=== PATIENT | male | born 1995 | race Caucasian/White ===

== ENCOUNTER 2016-07-27 14:48 | Emergency (ER) | payer BC ==
[2016-07-27] MEDS ORDERED: NS 2,000 ML IV ONE (14:58)
[2016-07-27] MEDS ORDERED: HYDROmorphONE/DILAUDID 1 MG/ML SYR IVP ONE (14:58)
[2016-07-27] MEDS ORDERED: ONDANSETRON 4 MG/2 ML VIAL IVP ONE ×2 (14:58→16:06)
--- NOTE | 2016-07-27 14:58 | UCPHY ---
H & P Patient Type: New HPI/ROS: HPI CHIEF COMPLAINT: Abdominal pain, nausea, vomiting HISTORY OF PRESENT ILLNESS: This patient very pleasant 20-year-old male, denies any significant medical history does not have any surgical history does not take any daily medications he presents to the urgent care with nausea, vomiting, and diffuse crampy abdominal pain however focally more tender no right lower quadrant. States he has had chills and night sweats, no diarrhea, no hematemesis. States that initially was a milk shake that he drank last night and then it has turned yellow bile. describes the pain as 6/10 diffuse abdomen worse right lower quadrant. Past Medical History: No medical history Past Surgical History: no surgical history Social History: denies daily use drugs alcohol tobacco products, is [employer] student Family History: Noncontributory ROS REVIEW OF SYSTEMS: A comprehensive 10 point review of systems is otherwise negative aside from elements mentioned in the history of present illness. Exam Constitutional appears nontoxic, triage nursing summary reviewed, vital signs reviewed, awake/alert. Eyes normal conjunctivae and sclera, EOMI, PERRLA. HENT normal inspection, atraumatic, moist mucus membranes, no epistaxis, neck supple/ no meningismus, no raccoon eyes. Respiratory clear to auscultation bilaterally, normal breath sounds, no respiratory distress, no wheezing. Cardiovascular rate normal, regular rhythm, no murmur, no edema, distal pulses normal. Gastrointestinal soft, non-tender, no rebound, no guarding, normal bowel sounds, no distension, no pulsatile mass. Genitourinary no CVA tenderness. Musculoskeletal no midline vertebral tenderness, full range of motion, no calf swelling, no tenderness of extremities, no meningismus, good pulses, neurovascularly intact. Skin pink, warm, & dry, no rash, skin atraumatic. Neurologic awake, alert and oriented x 3, AAOx3, moves all 4 extremities equally, motor intact, sensory intact, CN II-XII intact, normal cerebellar, normal vision, normal speech. Psychiatric normal mood/affect. Heme/Lymph/Immune no lymphadenopathy. Differential diagnosis includes but is not limited to and in no particular order : Bowel obstruction, appendicitis, gallbladder disease, diverticulitis, colitis , enteritis, perforated viscus, gastritis, GERD, esophagitis, urinary tract infection, pyelonephritis, kidney stones Medical Decision Making: This patient had an IV established receive IV fluids 2 L normal saline, 4 mg IV Zofran, 0.5 mg IV Dilaudid, abdominal blood work including lipase and LFTs, check urinalysis. Re-evaluate. Re-evaluation: 1621; re-evaluation at this time: Patient is getting 2nd L fluid his initial lactic acid was 3.1 this is not indicated of sepsis however did his lactic acid is due to nausea vomiting. He does have a high white count due to nausea vomiting. Does have diffuse abdominal pain a CT scan abdomen pelvis with IV contrast is pending. Blood work has been reviewed shows a leukocytosis of 19,000, lactic acid elevated 3.1. This is almost lead reactive and due to dehydration persistent nausea vomiting. CT scan pending. CT scan of the abdomen pelvis with IV contrast. The results of the study are negative for acute intra-abdominal process The study was read by Dr. Quintanilla I viewed the images myself on the PACS system. 1735: re-evaluation at this time: Patient is resting comfortably no acute distress. He feels much better he is not vomiting. He received 3 L of fluid. His lactic acid BP is pending. 1923: Re-examination at this time patient is feeling much better he is requesting be discharged from the urgent care. Lactic acid did trend down it is almost normal. He has had 3 L of fluid here no hypertension no fever no signs of sepsis. Leukocytosis and elevated lactic due to acute nausea vomiting. CT scan was reassuring. Feels comfortable going home. He p.o. challenge well. Prescription for Zofran. He understands he started vomiting worsening symptoms to return immediately to the urgent care. Source: Patient - Family History Significant Family History: No pertinent family hx Constitutional: Initial Vital Signs Temperature (C) 36.2 C 07/27/16 15:29 Heart Rate 51 L 07/27/16 15:29 Respiratory Rate 20 07/27/16 15:29 Blood Pressure 117/73 07/27/16 15:29 O2 Sat (%) 100 07/27/16 15:29 O2 Delivery Mode Room Air Allergies/Adverse Reactions: No Known Allergies Allergy (Unverified 07/27/16 15:52) Home Medications: Medication Instructions Recorded Ondansetron HCl [Zofran] 4 mg PO Q4-6PRN PRN #10 tablet 07/27/16 Medical Decision Making - Data Points Laboratory Results: Laboratory Results 07/27/16 15:02 07/27/16 15:02 07/27/16 07/27/16 07/27/16 18:49 15:02 15:02 WBC RBC Hgb Hct MCV MCH MCHC RDW Plt Count MPV Neut % (Auto) Lymph % (Auto) [place] % (Auto) Eos % (Auto) Baso % (Auto) Nucleat RBC Rel Count Absolute Neuts (auto) Absolute Lymphs (auto) Absolute Monos (auto) Absolute Eos (auto) Absolute Basos (auto) Absolute Nucleated RBC Immature Gran % Immature Gran # PT 13.4 SEC SEC (12.0-15.0) INR 1.05 (0.83-1.16) APTT 24.9 SEC SEC (23.0-38.0) VBG Lactic Acid 2.7 mmol/L H mmol/L (0.7-2.1) Sodium 145 mEq/L H mEq/L (134-144) Potassium 3.8 mEq/L mEq/L (3.5-5.2) Chloride 104 mEq/L mEq/L (97-110) Carbon Dioxide 21 mEq/l L mEq/l (22-31) Anion Gap 20 mEq/L H mEq/L (8-16) BUN 12 mg/dL mg/dL (7-23) Creatinine 0.8 mg/dL mg/dL (0.7-1.3) Estimated GFR > 60 Glucose 115 mg/dL H mg/dL (70-100) Calcium 9.9 mg/dL mg/dL (8.5-10.4) Total Bilirubin 0.9 mg/dL mg/dL (0.1-1.4) Conjugated Bilirubin 0.3 mg/dL mg/dL (0.0-0.5) Unconjugated Bilirubin 0.6 mg/dL mg/dL (0.0-1.1) AST 47 IU/L IU/L (17-59) ALT 49 IU/L IU/L (21-72) Alkaline Phosphatase 92 IU/L IU/L (38-126) Total Protein 7.9 g/dL g/dL (6.3-8.2) Albumin 4.6 g/dL g/dL (3.5-5.0) Lipase 61.0 IU/L IU/L (23-300) 07/27/16 07/27/16 15:02 15:02 WBC 19.68 10^3/uL H 10^3/uL (3.80-9.50) RBC 5.04 10^6/uL 10^6/uL (4.40-6.38) Hgb 16.3 g/dL g/dL (13.7-17.5) Hct 44.9 % % (40.0-51.0) MCV 89.1 fL fL (81.5-99.8) MCH 32.3 pg pg (27.9-34.1) MCHC 36.3 g/dL g/dL (32.4-36.7) RDW 11.9 % % (11.5-15.2) Plt Count 402 10^3/uL H 10^3/uL (150-400) MPV 10.2 fL fL (8.7-11.7) Neut % (Auto) 83.2 % H % (39.3-74.2) Lymph % (Auto) 10.4 % L % (15.0-45.0) [place] % (Auto) 5.3 % % (4.5-13.0) Eos % (Auto) 0.1 % L % (0.6-7.6) Baso % (Auto) 0.4 % % (0.3-1.7) Nucleat RBC Rel Count 0.0 % % (0.0-0.2) Absolute Neuts (auto) 16.38 10^3/uL H 10^3/uL (1.70-6.50) Absolute Lymphs (auto) 2.04 10^3/uL 10^3/uL (1.00-3.00) Absolute Monos (auto) 1.05 10^3/uL H 10^3/uL (0.30-0.80) Absolute Eos (auto) 0.01 10^3/uL L 10^3/uL (0.03-0.40) Absolute Basos (auto) 0.08 10^3/uL 10^3/uL (0.02-0.10) Absolute Nucleated RBC 0.00 10^3/uL 10^3/uL (0-0.01) Immature Gran % 0.6 % % (0.0-1.1) Immature Gran # 0.12 10^3/uL H 10^3/uL (0.00-0.10) PT INR APTT VBG Lactic Acid 3.1 mmol/L H mmol/L (0.7-2.1) Sodium Potassium Chloride Carbon Dioxide Anion Gap BUN Creatinine Estimated GFR Glucose Calcium Total Bilirubin Conjugated Bilirubin Unconjugated Bilirubin AST ALT Alkaline Phosphatase Total Protein Albumin Lipase Medications Given: Discontinued Medications Hydromorphone HCl (Dilaudid) 0.5 mg IVP EDNOW ONE Stop: 07/27/16 14:59 Last Admin: 07/27/16 16:33 Dose: Not Given Sodium Chloride (Ns) 2,000 mls @ 0 mls/hr IV ONCE ONE PRN Reason: Wide Open Stop: 07/27/16 14:59 Last Admin: 07/27/16 15:17 Dose: 2,000 mls Sodium Chloride (Ns) 1,000 mls @ 0 mls/hr IV ONCE ONE PRN Reason: Wide Open Stop: 07/27/16 16:25 Last Admin: 07/27/16 16:28 Dose: 1,000 mls Ondansetron HCl (Zofran) 4 mg IVP EDNOW ONE Stop: 07/27/16 14:59 Last Admin: 07/27/16 15:18 Dose: 4 mg Ondansetron HCl (Zofran) 4 mg IVP EDNOW ONE Stop: 07/27/16 16:07 Last Admin: 07/27/16 16:33 Dose: 4 mg Departure - Departure Disposition: Home, Routine, Self-Care Clinical Impression: Nausea and vomiting Qualifiers: Vomiting type: unspecified Vomiting Intractability: non-intractable Qualified Code(s): R11.2 - Nausea with vomiting, unspecified Diarrhea Qualifiers: Diarrhea type: unspecified type Qualified Code(s): R19.7 - Diarrhea, unspecified Condition: Good Instructions: Acute Nausea and Vomiting (ED) Additional Instructions: 1. Return to the urgent care or emergency room if develops worsening symptoms includes worsening abdominal pain, fever, vomiting. Referrals: NONE *PRIMARY CARE P,. [Primary Care Provider] - As per Instructions Prescriptions: Ondansetron HCl [Zofran] 4 mg PO Q4-6PRN PRN #10 tablet PRN Reason: Nausea/Vomiting, Use 1st - PQRS PQRS Measurement: n/a
[2016-07-27] MEDS ORDERED: IOPAMIDOL (ISOVUE-300) 100 ML BTL IV ONE (15:07)
[2016-07-27 15:35] LABS: % IMMATURE GRANULYOCYTES 0.6 % (0.0-1.1); ABSOLUTE IMMATURE GRANULOCYTES 0.12 10^3/uL (0.00-0.10); ADD DIFF? NO; ADD MORPH? NO; ADD SCAN? NO; ATYPICAL LYMPHOCYTE FLAG 0 (0-99); FRAGMENT RBC FLAG 0 (0-99); HEMATOCRIT 44.9 % (40.0-51.0); HEMOGLOBIN 16.3 g/dL (13.7-17.5); LEFT SHIFT FLG 0 (0-99); LIPEMIA HEMOLYSIS FLAG 90 (0-99); MEAN CELL HEMOGLOBIN 32.3 pg (27.9-34.1); MEAN CELL HEMOGLOBIN CONCENTR. 36.3 g/dL (32.4-36.7); MEAN CELL VOLUME 89.1 fL (81.5-99.8); MEAN PLATELET VOLUME 10.2 fL (8.7-11.7); PLATELET CLUMPS FLAG 0 (0-99); PLATELET COUNT 402 10^3/uL (150-400); RED BLOOD CELL COUNT 5.04 10^6/uL (4.40-6.38); RED CELL DISTRIBUTION WIDTH 11.9 % (11.5-15.2)
[2016-07-27 15:52] LABS: ALANINE AMINOTRANSFERASE 49 IU/L (21-72); ALBUMIN 4.6 g/dL (3.5-5.0); ALKALINE PHOSPHATASE 92 IU/L (38-126); ANION GAP 20 mEq/L (8-16); ASPARTATE AMINOTRANSFERASE 47 IU/L (17-59); BILIRUBIN,TOTAL 0.9 mg/dL (0.1-1.4); BILIRUBIN-CONJUGATED 0.3 mg/dL (0.0-0.5); BILIRUBIN-UNCONJUGATED 0.6 mg/dL (0.0-1.1); CALCIUM 9.9 mg/dL (8.5-10.4); CARBON DIOXIDE 21 mEq/l (22-31); CHLORIDE 104 mEq/L (97-110); CREATININE 0.8 mg/dL (0.7-1.3); GLOMERULAR FILTRATION RATE > 60; GLUCOSE 115 mg/dL (70-100); POTASSIUM 3.8 mEq/L (3.5-5.2); SODIUM 145 mEq/L (134-144); TOTAL PROTEIN 7.9 g/dL (6.3-8.2)
[2016-07-27 16:08] LABS: INR 1.05 (0.83-1.16); PROTIME(PATIENT) 13.4 SEC (12.0-15.0)
[2016-07-27 16:09] LABS: APTT 24.9 SEC (23.0-38.0)
[2016-07-27] MEDS ORDERED: NS 1,000 ML IV ONE ×2 (16:24→19:21)
[2016-07-27 16:44] VITALS: RESP 18; TEMP 98.1
[2016-07-27 23:16] VITALS: BP 122/62; PULSE 59; O2SAT 95
== END 2016-07-27 20:01 | disposition home or self-care (01) ==
LOC: CED 14:48
DX: R11.2 Nausea with vomiting, unspecified (principal); R19.7 Diarrhea, unspecified
CPT/HCPCS: 74177-PO; 80048-PO; 80076-PO; 83605-PO; 83690-PO; 85025-PO; 85610-PO; 85730-PO; 96361-PO; 96374-PO; 96376-PO; 99205-PO; G0463-PO; J1170; J2405; Q9967